=== PATIENT | male | born 1950 | race Caucasian/White ===

== ENCOUNTER 2023-10-10 19:38 | Emergency (ER) | payer MEDICARE ==
[2023-10-10 20:27] VITALS: PULSE 81; RESP 16; TEMP 97.5; BMI 20.2
[2023-10-11 04:08] VITALS: BP 119/72
== END 2023-10-11 04:06 | disposition home or self-care (01) ==
LOC: FER 19:38
DX: S02.2XXB Fracture of nasal bones, initial encounter for open fracture (principal); S01.81XA Laceration without foreign body of other part of head, initial encounter; V00.811A Fall from moving wheelchair (powered), initial encounter
CPT/HCPCS: 70450-TC; 70486-TC; 72125-TC; 99284-25